=== PATIENT | female | born 1995 | race African-American/Black ===

== ENCOUNTER 2017-01-14 18:34 | Observation (INO) | payer BC, OTHER ==
[~2017-01-14] VITALS: Ht 182.9 cm; Wt 71.7 kg
[2017-01-14] VITALS (7 sets, daily range): BP systolic 128–147; BP diastolic 85–94
[~2017-01-14 18:34] MED LIST: BIRTH CONTROL PO
[2017-01-14] MEDS ORDERED: LACTATED RINGERS 1,000 ML IV ONE (18:42)
[2017-01-14 19:12] LABS: BASOPHILS % (AUTO) 0 % (0-10); EOSINOPHILS # (AUTO) 0.1 10^3/uL (0.0-0.3); EOSINOPHILS % (AUTO) 0 % (0-10); LYMPHOCYTES # (AUTO) 1.7 X 10^3 (1.0-4.0); LYMPHOCYTES % (AUTO) 14 % (12-44); MEAN CORPUSCULAR HEMOGLOBIN 27 PG (25-34); MEAN CORPUSCULAR HGB CONC 33 G/DL (32-36); MEAN CORPUSCULAR VOLUME 82 FL (80-99); MEAN PLATELET VOLUME 10.4 FL (7.4-10.4); MONOCYTES # (AUTO) 0.5 X 10^3 (0.0-1.0); MONOCYTES % (AUTO) 5 % (0-12); NEUTROPHILS # (AUTO) 9.6 X 10^3 (1.8-7.8); NEUTROPHILS % (AUTO) 81 % (42-75); PLATELET COUNT 264 10^3/uL (130-400); RED BLOOD COUNT 5.07 10^6/uL (4.35-5.85); RED CELL DISTRIBUTION WIDTH 13.3 % (10.0-14.5); WHITE BLOOD COUNT 11.9 10^3/uL (4.3-11.0)
--- NOTE | 2017-01-14 19:15 | ED General ---
General Chief Complaint: Neurological Problems Stated Complaint: SEIZURE Nursing Triage Note: PT BROUGHT IN BY [facility] WITH C/O SEIZURE LIKE ACTIVITY. 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 SHE STATES THAT SHE SAT HERSELF IN A CHAIR AND THEN LOWERED HERSELF TO THE FLOOR. SHE REPORTS SHE THEN "BLACKED OUT". UPON ARRIVAL TO ED, PT DOES NOT APPEAR TO BE POST ICTAL. SHE IS A&O X 4. SHE DOES REPORT SIMILAR INCIDENTS IN 2013. SHE DENIES ANY NEUROLOGIST FOLLOW UP OR SEIZURE MEDS. 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 AND THEN HAD "SEIZURE-LIKE ACTIVITY" PER EMS--UNKNOWN LENGTH OF TIME PT STATES SHE WAS RUNNING, STARTED HAVING A MIGRAINE, THEN HAD NAUSEA, THEN "FELT HER BODY GIVING OUT" SO SHE "LAID DOWN ON THE GROUND IN A POSITION AND PASSED OUT" --PER PT NO INJURY PT HAS NO HEADACHE OR NAUSEA NOW NO PARESTHESIAS OR MOTOR DEFICITS STATES SHE FEELS COMPLETELY FINE, JUST A FEELS A LITTLE "LETHARGIC" STATES THIS HAS HAPPENED SEVERAL TIMES SINCE SHE WAS IN 8TH GRADE LAST TIME WAS IN 2013--STATES SHE HAD "22 SEIZURES" AND "WOKE UP IN [facility] IN [place]" HAS BEEN SEEN BY MULTIPLE NEUROLOGISTS AND HAD MULTIPLE WORK-UP'S --ALL NORMAL, EXCEPT SHE STATES THE LAST TIME THEY HAD TO GIVE HER SALT TABLETS. PT HAS NEVER BEEN ON SEIZURE MEDICATIONS AND HAS NEVER HAD TO FOLLOW UP WITH ANY NEUROLOGIST AFTER HOSPITALIZATIONS PT WAS TOLD SHE NEEDED TO SEE A PSYCHOLOGIST AFTER LAST EPISODE, DUE TO BEING UNDER ALOT OF STRESS--PT NEVER FOLLOWED UP. PT DENIES BEING UNDER ANY UNUSUAL STRESS LATELY PT STATES SHE HAS HAD MIGRAINES IN THE PAST WITH THESE, BUT HAS NOT HAD ANY FOR A LONG TIME--UNTIL 2 WEEKS AGO HAD A SIMILAR EPISODE 2 WEEKS AGO, AND ALSO LAST NIGHT--DID NOT SEEK CARE FOR THOSE STATES MIGRAINES ARE ON THE LEFT SIDE OF HER HEAD AND SHE LOSES VISION ON THE LEFT AND ONLY SEES WHITE SPOTS ON THE LEFT, THEN SHE GETS NAUSEATED AND THROWS UP, THEN PASSES OUT. WHEN SHE WAKES UP HER HEADACHE IS GONE. STATES SHE HAD A VERY SLIGHT HEADACHE WHEN SHE WOKE UP THIS AM, BUT IT WENT AWAY WITHOUT TREATMENT PT HAS BEEN ON A MEATLESS DIET FOR THE LAST 40 DAYS DID NOT EAT SUPPER LAST NIGHT--DRANK SOME CHOCOLATE MILK AND THEN THREW IT UP TODAY, SHE HAD A SMALL AMOUNT OF CEREAL FOR BREAKFAST, AND AGAIN FOR LUNCH. HAS NOT HAD ANYTHING ELSE TO EAT SINCE YESTERDAY, AND NOT MUCH TO DRINK. LMP 1 WEEK AGO, NO CONTROL [employer]--LIVES IN [place], [place] Allergies and Home Medications Allergies Coded Allergies: No Known Drug Allergies (Unverified , 01/05/13) Home Medications 1 TAB PO DAILY (Reported) Constitutional: see HPI EENTM: see HPI Respiratory: no symptoms reported Cardiovascular: No chest pain, No edema, No palpitations, syncopeNo vascular heart diseas Gastrointestinal: see HPINo abdominal pain, nauseaNo vomiting Genitourinary: no symptoms reported : No LMP: Jan 06, 2017 (NO CONTROL) Musculoskeletal: no symptoms reported Skin: no symptoms reported Psychiatric/Neurological: See HPI Hematologic/Lymphatic: No Symptoms Reported Immunological/Allergic: no symptoms reported Past Lkkfjiz-Yhelqk-Imytuj Hx Patient Social History Alcohol Use: Occasionally Uses Recreational Drug Use: No Smoking Status: Never a Smoker 2nd Hand Smoke Exposure: No Recent Foreign Travel: No Contact w/Someone Who Travel: No Recent Infectious Disease Expo: No Recent Hopitalizations: No Surgeries HX Surgeries: No Respiratory Hx Respiratory Disorders: No Cardiovascular Hx Cardiac Disorders: No Neurological Hx Neurological Disorders: Yes (SEIZURE-LIKE ACTIVITY VS SYNCOPE VS MIGRAINE- RELATED) Neurological Disorders: Headaches /Migraines Reproductive System : No Hx Reproductive Disorders: No Sexually Transmitted Disease: No Female Reproductive Disorders: Denies Genitourinary Hx Genitourinary Disorders: Yes (UTI) Gastrointestinal Hx Gastrointestinal Disorders: No Musculoskeletal Hx Musculoskeletal Disorders: No Endocrine Hx Endocrine Disorders: No HEENT HX ENT Disorders: No Cancer Hx Cancer: No Psychosocial Hx Psychiatric Problems: No Integumentary HX Skin/Integumentary Disorder: No Blood Transfusions Hx Blood Disorders: No Adverse Reaction to a Blood Tr: No Physical Exam Vital Signs Vital Sign - Last 12Hours 01/14/17 18:43 Temp 98.9 Pulse 75 Resp 16 B/P 148/114 Pulse Ox 98 O2 Delivery Room Air Capillary Refill : Less Than 3 Seconds General Appearance: No Apparent Distress WD/WN Thin HEENT: PERRL/EOMI TMs Normal Normal ENT Inspection Pharynx Normal Neck: Full Range of Motion Normal Inspection Non Tender Supple Respiratory: Normal Breath Sounds No Accessory Muscle Use No Respiratory Distress Cardiovascular: Regular Rate, Rhythm No Edema No JVD No Murmur Normal Peripheral Pulses Gastrointestinal: Normal Bowel Sounds No Organomegaly No Pulsatile Mass Non Tender Soft Back: Normal Inspection No CVA Tenderness No Vertebral Tenderness Extremity: Normal Capillary Refill Normal Inspection Normal Range of Motion Non Tender No Calf Tenderness No Pedal Edema Neurologic/Psychiatric: Alert Oriented x3 No Motor/Sensory Deficits Normal Mood/Affect forklift mechanic II-XII Norm as Tested Reflexes: 2+ Bicep (R), 2+ Bicep (L), 2+ Knee (R), 2+ Knee (L) Skin: Normal Color Warm/Dry Progress/Results/Core Measures Results/Orders Lab Results Laboratory Tests Test 01/14/17 19:07 01/14/17 20:02 Range/Units Alanine Aminotransferase (ALT/SGPT) 21 0-55 U/L Albumin 4.6 H 3.2-4.5 G/DL Alkaline Phosphatase 71 40-136 U/L Anion Gap 15 H 5-14 MMOL/L Aspartate Amino Transf (AST/SGOT) 26 5-34 U/L BUN/Creatinine Ratio 13 Basophils # (Auto) 0.0 0.0-0.1 10^3/uL Basophils (%) (Auto) 0 0-10 % Blood Urea Nitrogen 14 7-18 MG/DL Calcium Level 9.8 8.5-10.1 MG/DL Carbon Dioxide Level 20 L 21-32 MMOL/L Chloride Level 107 98-107 MMOL/L Creatine Kinase MB 1.1 <6.6 NG/ML Creatinine 1.04 0.60-1.30 MG/DL Eosinophils # (Auto) 0.1 0.0-0.3 10^3/uL Eosinophils (%) (Auto) 0 0-10 % Estimat Glomerular Filtration Rate > 60 Glucose Level 87 70-105 MG/DL Hematocrit 42 35-52 % Hemoglobin 13.7 11.5-16.0 G/DL Lymphocytes # (Auto) 1.7 1.0-4.0 X 10^3 Lymphocytes (%) (Auto) 14 12-44 % Magnesium Level 2.0 1.8-2.4 MG/DL Mean Corpuscular Hemoglobin 27 25-34 PG Mean Corpuscular Hemoglobin Concent 33 32-36 G/DL Mean Corpuscular Volume 82 80-99 FL Mean Platelet Volume 10.4 7.4-10.4 FL Monocytes # (Auto) 0.5 0.0-1.0 X 10^3 Monocytes (%) (Auto) 5 0-12 % Neutrophils # (Auto) 9.6 H 1.8-7.8 X 10^3 Neutrophils (%) (Auto) 81 H 42-75 % Platelet Count 264 130-400 10^3/uL Potassium Level 4.3 3.6-5.0 MMOL/L Red Blood Count 5.07 4.35-5.85 10^6/uL Red Cell Distribution Width 13.3 10.0-14.5 % Serum Test, Qualitative NEGATIVE NEGATIVE Sodium Level 142 135-145 MMOL/L TSH [place] Testing 2.34 0.35-4.94 UIU/ML Total Bilirubin 0.7 0.1-1.0 MG/DL Total Creatine Kinase 210 H 29-168 U/L Total Protein 8.0 6.4-8.2 G/DL White Blood Count 11.9 H 4.3-11.0 10^3/uL Ur Tricyclic Antidepressants Screen NEGATIVE NEGATIVE Urine Amphetamines Screen NEGATIVE NEGATIVE Urine Bacteria NONE /HPF Urine Barbiturates Screen NEGATIVE NEGATIVE Urine Benzodiazepines Screen NEGATIVE NEGATIVE Urine Bilirubin NEGATIVE NEGATIVE Urine Cannabinoids Screen NEGATIVE NEGATIVE Urine Casts NONE /LPF Urine Clarity CLEAR Urine Cocaine Screen NEGATIVE NEGATIVE Urine Color YELLOW Urine Crystals NONE /LPF Urine Culture Indicated NO Urine Glucose (UA) NEGATIVE NEGATIVE Urine Ketones 1+ H NEGATIVE Urine Leukocyte Esterase NEGATIVE NEGATIVE Urine Methadone Screen NEGATIVE NEGATIVE Urine Methamphetamines Screen NEGATIVE NEGATIVE Urine Mucus NEGATIVE /LPF Urine Nitrite NEGATIVE NEGATIVE Urine Opiates Screen NEGATIVE NEGATIVE Urine Oxycodone Screen NEGATIVE NEGATIVE Urine Phencyclidine Screen NEGATIVE NEGATIVE Urine Propoxyphene Screen NEGATIVE NEGATIVE Urine Protein 2+ H NEGATIVE Urine RBC RARE /HPF Urine RBC (Auto) 1+ H NEGATIVE Urine Specific [place] 1.020 1.016-1.022 Urine Squamous Epithelial Cells 0-2 /HPF Urine Urobilinogen NORMAL NORMAL MG/DL Urine WBC NONE /HPF Urine pH 5 5-9 My Orders Orders-JULIET HOANG DO Saline Lock/Iv-Start (01/14/17 18:42) Ekg Tracing (01/14/17 18:42) Monitor-Rhythm Ecg Trace Only (01/14/17 18:42) Ct Head Wo (01/14/17 18:42) Cbc With Automated Diff (01/14/17 18:42) Comprehensive Metabolic Panel (01/14/17 18:42) Creatine Kinase (01/14/17 18:42) Creatine Kinase Mb (01/14/17 18:42) Drug Screen Stat (Urine) (01/14/17 18:42) Hcg,Qualitative Serum (01/14/17 18:42) Magnesium (01/14/17 18:42) Thyroid Analyzer (01/14/17 18:42) Ua Culture If Indicated (01/14/17 18:42) Saline Lock/Iv-Start (01/14/17 18:42) Lactated Ringers (Lr 1000 Ml Iv Solution (01/14/17 18:42) Ketorolac Injection (Toradol Injection) (01/14/17 20:45) Ondansetron Injection (Zofran Injectio (01/14/17 20:45) Medications Given in ED Current Medications Medications Dose Ordered Sig/Beatrice Route Start Time Stop Time Status Last Admin Dose Admin Lactated Ringer's 1,000 ml @ 0 mls/hr Q0M ONCE IV 01/14/17 18:42 01/14/17 18:44 DC 01/14/17 19:05 999 MLS/HR Vital Signs/I&O Vital Sign - Last 12Hours 01/14/17 01/14/17 18:43 21:30 Temp 98.9 97.6 Pulse 75 52 Resp 16 18 B/P 148/114 134/85 Pulse Ox 98 100 O2 Delivery Room Air Room Air Blood Pressure Mean: 125 Progress Note : Progress Note UNEVENTFUL ER STAY JUST PRIOR TO ADMIT, DID STATE SHE WAS STARTING TO FEEL A SLIGHT HEADACHE AND NAUSEA --GIVEN ZOFRAN AND TORADOL WITH IMPROVEMENT Diagnostic Imaging Comments CT HEAD-NO ACUTE PROCESS, PER RADIOLOGIST REPORT @ 1930 Reviewed: Reviewed by Me Departure Communication Progress Notes 2029--SPOKE WITH DR. GREEN, SHE ACCEPTS PT FOR ADMIT. Impression Impression: Primary Impression: MIGRAINE WITH SYNCOPAL EPISODE VS SEIZURE-LIKE ACTIVITY Disposition: ADMITTED INPATIENT Condition: Improved Decision to Admit Reason: Admit from ER (General) Decision to Admit/Date: Jan 14, 2017 Time/Decision to Admit Time: 20:30 Departure-Patient Inst. Referrals: [facility] (PCP/Family) Primary Care Physician Add. Discharge Instructions: All discharge instructions reviewed with patient and/or family. Voiced understanding. JULIET HOANG DO Jan 14, 2017 19:15
--- NOTE | 2017-01-14 19:23 | Diagnostic Imaging Report ---
PROCEDURE: CT head without contrast. TECHNIQUE: Multiple contiguous axial images were obtained through the brain without the use of intravenous contrast. INDICATION: Seizure. COMPARISON: CT head without contrast 01/05/2013. FINDINGS: No CT evidence of acute infarction. No intracranial hemorrhage, mass effect, extra-axial fluid collections or hydrocephalus. Mild mucosal thickening in ethmoid sinuses, improved since the prior exam. The mastoids and visualized orbits are unremarkable. IMPRESSION: No acute intracranial CT findings. Dictated by: Dictated on workstation # [id number]
[2017-01-14 19:38] LABS: ALANINE AMINOTRANSFERASE 21 U/L (0-55); ALBUMIN 4.6 G/DL (3.2-4.5); ANION GAP 15 MMOL/L (5-14); ASPARTATE AMINO TRANSFERASE 26 U/L (5-34); BILIRUBIN,TOTAL 0.7 MG/DL (0.1-1.0); BLOOD UREA NITROGEN 14 MG/DL (7-18); BUN/CREATININE RATIO 13; CALCIUM 9.8 MG/DL (8.5-10.1); CARBON DIOXIDE 20 MMOL/L (21-32); CHLORIDE 107 MMOL/L (98-107); CREATINE KINASE 210 U/L (29-168); CREATININE SERUM 1.04 MG/DL (0.60-1.30); GFR ESTIMATED > 60; GLUCOSE 87 MG/DL (70-105); POTASSIUM 4.3 MMOL/L (3.6-5.0); SODIUM 142 MMOL/L (135-145)
[2017-01-14 20:25] LABS: BILIRUBIN,URINE NEGATIVE (NEGATIVE); KETONES,URINE 1+ (NEGATIVE); LEUKOCYTE ESTERASE ,URINE NEGATIVE (NEGATIVE); NITRITE,URINE NEGATIVE (NEGATIVE); PH,URINE 5 (5-9); PROTEIN,URINE 2+ (NEGATIVE); SQUAMOUS EPITHELIAL CELL,UR 0-2 /HPF; UROBILINOGEN,URINE NORMAL (NORMAL)
[2017-01-14] MEDS ORDERED: KETOROLAC 30 MG/ML VIAL IVP ONE (20:45)
[2017-01-14] MEDS ORDERED: ONDANSETRON 4 MG/2 ML (SDV) Z0FRAN IVP ONE (20:45)
[2017-01-14] MEDS ORDERED: CATHETER FLUSH 10 ML SYR IV PRN (22:00)
[2017-01-14] MEDS ORDERED: ONDANSETRON 4 MG/2 ML (SDV) Z0FRAN IV PRN (22:00)
[2017-01-14] MEDS ORDERED: KETOROLAC 30 MG/ML VIAL IV PRN (22:00)
[2017-01-14] MEDS: CATHETER FLUSH 10 ML SYR IV SCH (22:23)
[2017-01-14] MEDS: LACTATED RINGERS 1,000 ML IV SCH (22:23)
[2017-01-15] VITALS (10 sets, daily range): BP systolic 100–134; BP diastolic 64–87
[2017-01-15] MEDS: LACTATED RINGERS 1,000 ML IV SCH (04:37)
[2017-01-15 05:34] LABS: BASOPHILS % (AUTO) 0 % (0-10); EOSINOPHILS # (AUTO) 0.1 10^3/uL (0.0-0.3); EOSINOPHILS % (AUTO) 1 % (0-10); LYMPHOCYTES # (AUTO) 2.7 X 10^3 (1.0-4.0); LYMPHOCYTES % (AUTO) 35 % (12-44); MEAN CORPUSCULAR HEMOGLOBIN 27 PG (25-34); MEAN CORPUSCULAR HGB CONC 33 G/DL (32-36); MEAN CORPUSCULAR VOLUME 83 FL (80-99); MEAN PLATELET VOLUME 11.1 FL (7.4-10.4); MONOCYTES # (AUTO) 0.4 X 10^3 (0.0-1.0); MONOCYTES % (AUTO) 5 % (0-12); NEUTROPHILS # (AUTO) 4.7 X 10^3 (1.8-7.8); NEUTROPHILS % (AUTO) 59 % (42-75); PLATELET COUNT 250 10^3/uL (130-400); RED BLOOD COUNT 4.25 10^6/uL (4.35-5.85); RED CELL DISTRIBUTION WIDTH 13.1 % (10.0-14.5); WHITE BLOOD COUNT 7.9 10^3/uL (4.3-11.0)
[2017-01-15] MEDS: CATHETER FLUSH 10 ML SYR IV SCH (06:00)
[2017-01-15 06:11] LABS: ALANINE AMINOTRANSFERASE 15 U/L (0-55); ALBUMIN 3.4 G/DL (3.2-4.5); ANION GAP 10 MMOL/L (5-14); ASPARTATE AMINO TRANSFERASE 24 U/L (5-34); BILIRUBIN,TOTAL 0.7 MG/DL (0.1-1.0); BLOOD UREA NITROGEN 11 MG/DL (7-18); BUN/CREATININE RATIO 13; CALCIUM 8.7 MG/DL (8.5-10.1); CARBON DIOXIDE 20 MMOL/L (21-32); CHLORIDE 108 MMOL/L (98-107); CREATININE SERUM 0.85 MG/DL (0.60-1.30); GFR ESTIMATED > 60; GLUCOSE 74 MG/DL (70-105); SODIUM 138 MMOL/L (135-145); TOTAL PROTEIN 6.1 G/DL (6.4-8.2)
[2017-01-15] MEDS ORDERED: FLU TRIvalent (5 YOA+) 2016-17 (AFLURIA) 0.5 ML IM ONE (07:15)
--- NOTE | 2017-01-15 08:38 | Short Stay Summary ---
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 Approximately 4 years ago she had had episodes of syncope with seizure-like activity. Her evaluation by neurologist in [place] showed no epilepsy but rather that these were secondary to vasovagal syncope hyponatremia and dehydration. The patient notes that she has been on the forty day fast to exclude most proteins and red meats. Her blood work reflected a dehydrated state at the time of admission. 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 She began to feel funny and was not talking coherently yesterday afternoon, she complained of a headache,and this was followed by passing out and tonic-clonic jerking. EMS was called and she was transported to our emergency room where she was admitted overnight for observation. At the time of my interview this morning she's feeling much better is hungry and we discussed that following the recommendations from the neurologist in [place] for the last 4 years she has been without seizure like activity or syncope. She had a followed regular diet with increased salt and increase fluids and decreased stress to achieve normality Source: patient Exam Limitations: no limitations Date Seen 01/15/17 Attending Physician Anastasiia Villalpando MD PCP Center,[employer] [facility] Referring Physician Date of Admission Jan 14, 2017 at 20:30 Home Medications & Allergies Home Medications Reviewed patient Home Medication Reconciliation Form Allergies Coded Allergies: No Known Drug Allergies (Unverified , 01/05/13) Past Elgzkex-Kwqdht-Xignky Hx Patient Social History Employed/Student: student, full-time Alcohol Use: Occasionally Uses Recreational Drug Use: No Smoking Status: Never a Smoker 2nd Hand Smoke Exposure: No Physical Abuse Screen: No Sexual Abuse: No Recent Foreign Travel: No Contact w/other who traveled: No Recent Hopitalizations: No Recent Infectious Disease Expo: No Surgeries HX Surgeries: No Respiratory Hx Respiratory Disorders: No Cardiovascular Hx Cardiovascular Disorders: No Neurological Hx Neurological Disorders: Yes (SEIZURE-LIKE ACTIVITY VS SYNCOPE VS MIGRAINE- RELATED) Neurological Disorders: Headaches /Migraines Reproductive System : No Hx Reproductive Disorders: No Sexually Transmitted Disease: No Female Reproductive Disorders: Denies Genitourinary Hx Genitourinary Disorders: Yes (UTI) Gastrointestinal Hx Gastrointestinal Disorders: No Musculoskeletal Hx Musculoskeletal Disorders: No Endocrine Hx Endocrine Disorders: No HEENT HX ENT Disorders: No Cancer Hx Cancer: No Psychosocial Hx Psychiatric Problems: No Integumentary HX Skin/Integumentary Disorder: No Blood Transfusions Hx Blood Disorders: No Adverse Reaction to a Blood Tr: No Family Medical History Family Hx: Dementia PATERNAL GRANDMOTHER Diabetes mellitus 19 MOTHER (NEWLY DIAGNOSED) Review of Systems Constitutional: see HPI weakness EENTM: no symptoms reported Respiratory: no symptoms reported Cardiovascular: no symptoms reported Gastrointestinal: no symptoms reported Genitourinary: no symptoms reported Musculoskeletal: no symptoms reported Skin: no symptoms reported Psychiatric/Neurological: Anxiety Other (headache) Physical Exam Physical Exam Vital Signs Vital Sign - Last 12Hours 01/14/17 18:43 Temp 98.9 Pulse 75 Resp 16 B/P 148/114 Pulse Ox 98 O2 Delivery Room Air Capillary Refill : Less Than 3 Seconds General Appearance: WD/WN HEENT: Normal ENT Inspection Neck: Non Tender Supple Respiratory: Lungs Clear Normal Breath Sounds Cardiovascular: Regular Rate, Rhythm No Gallop No Murmur Gastrointestinal: Non Tender Soft Rectal: Deferred Back: Normal Inspection Neurologic/Psychiatric: Alert Oriented x3 No Motor/Sensory Deficits Normal Mood/Affect podiatrist assistant II-XII Norm as Tested Skin: Normal Color Warm/Dry Lymphatic: No Adenopathy Short Stay Diagnosis Discharge Diagnosis-Short Stay Admission Diagnosis syncope secondary to dehydration with tonic-clonic movements no evidence of real seizure Dehydration Migraine headache Patient is better this morning after having been hydrated and she'll eat a regular diet. she is counseled to return to a regular diet with increased salt and fluids and follow up with Dr. Villalpando at the [facility] in the morning Final Discharge Diagnosis syncope Dehydration Migraine Conclusion Plan discharge after the patient has eaten a good breakfast this morning as she has been hydrated overnight. She may return to training after seeing Dr. Villalpando tomorrow morning.she is to return to a regular diet with increased protein salts and fluids. I called and discussed this plan with her mother who understand Clinical Quality Measures DVT/VTE Risk/Contraindication: Risk Factor Score Per Nursin RFS Level Per Nursing on Admit: 1=Low/No VTE PPX ANASTASIIA VILLALPANDO MD Jan 15, 2017 08:38
== END 2017-01-15 08:30 | disposition home or self-care (01) ==
LOC: EDUNIT# 18:34 → ER 18:34 → 4TH 20:30 → UNDOADMOB 20:30 → 4TH 21:23 → UNDODISOB 01-15 11:25
PROVIDERS: ADMIT Internal Medicine; ATTEND Internal Medicine
DX: R55 Syncope and collapse (principal); E86.0 Dehydration; G43.909 Migraine, unspecified, not intractable, without status migrainosus
CPT/HCPCS: 36415; 70450; 80053; 80306; 81000; 82550; 82553; 83735; 84443; 84703; 85025; 93005; 93041; 96361; 96374; 96375; 99211; G0378